=== PATIENT | female | born 1990 | race Caucasian/White ===

== ENCOUNTER → 2017-11-03 | Outpatient (CLI) | payer OTHER | END | disposition home or self-care (01) | LOC: C.PAPS 10:03 | PROVIDERS: ATTEND Physician Assistant | DX: Z01.411 Encounter for gynecological examination (general) (routine) with abnormal findings (principal); R87.619 Unspecified abnormal cytological findings in specimens from cervix uteri ==

== ENCOUNTER 2024-11-18 02:02 | Observation (INO) ==
--- NOTE | 2024-11-18 02:33 | Emergency Department Note ---
Impression & Plan Norovirus ED Provider Note CHIEF COMPLAINT: Vomiting, diarrhea, abdominal pain HISTORY OF PRESENTING ILLNESS: Patient is a 34-year-old female presents the emergency department today for evaluation of vomiting, diarrhea, abdominal pain. She reports going to dinner around 7:30 PM last evening and eating very hot spicy wings. On her way home she developed abdominal pain with vomiting and by the time she got home she was having watery and bloody stools. She does report a history of ulcers that she does not take any medications for. She does not report any recent travel, she does not smoke, she drinks social alcohol, and denies drug use. Her last menstrual cycle ended 1 week ago and she states that there is no chance of . She denies chest pain, sob, breathing difficulties, abdominal pain, headache, fevers/chills, blood in stool or urine, any recent illness, or any recent travel. REVIEW OF SYSTEMS: See HPI for pertinent positives and pertinent negatives. ALLERGIES: Penicillin MEDICATIONS: control PAST MEDICAL HISTORY: Stomach ulcers PHYSICAL EXAM: VITAL SIGNS - Vital signs and nursing notes were reviewed. GENERAL -34-year-old well appearing, stated age who is in no acute distress. Communicates well with provider and answers questions appropriately. HEAD - NC/AT. EYES - PERRL with EOMI bilaterally. Sclera anicteric. Palpebral conjunctiva pink and moist with no injection noted. MOUTH/OROPHARYNX - Without perioral cyanosis. Buccal mucosa pink and dry and without leukoplakia. Tongue midline with equal elevation of palate bilaterally. LUNGS - Chest wall symmetric without accessory muscle use, intercostals retractions, or central cyanosis. Normal vesicular breath sounds CTA B/L. No wheezes, rales, or rhonchi appreciated. CARDIAC - RRR with S1/S2. No murmur, rubs, or gallops appreciated. ABDOMEN - Abdominal contour is without pulsations or visible masses. BS hyperactive all four quadrants. Increase tenderness to palpation appreciated left lower quadrant. No guarding. No rebound Tenderness. No palpable masses, hepatosplenomegaly, or ascites noted. EXTREMITIES - No clubbing or peripheral cyanosis. No pretibial edema present. NEUROLOGIC - Cranial nerves II through XII grossly intact. Sensory intact to light touch throughout. PSYCH - A&Ox3 and cooperates fully with examiner. Pt is very pleasant and interacts well with examiner. DIFFERENTIAL DIAGNOSIS: Differential diagnosis includes appendicitis, diverticulitis, bowel obstruction, inflammatory bowel disease, renal colic, PUD, biliary pathology, pancreatitis, mesenteric ischemia, aortic pathology, infection, genitourinary, UTI, perforated viscus, among others. ED COURSE AND MEDICAL DECISION MAKING: HISTORY FROM INDEPENDENT HISTORIAN: Patient and her significant other who is at bedside MEDICATIONS GIVEN: 1 L normal saline, 4 mg Zofran IV, 40 mg Protonix IV MONITOR: Continuous diagnostic cardiac sonographer: Order was placed for continuous diagnostic cardiac sonographer. Patient was placed on the diagnostic cardiac sonographer and continuous pulse ox. Patient was noted to be in normal sinus rhythm at an initial rate of 72 bpm per my interpretation. INTERPRETATION OF LABS: I interpreted the labs with full lab results as below in the lab section of this note. Laboratory results pertinent to the emergent complaint are discussed in the MDM section below. The patient was advised to follow up with their PCP and/or specialist(s) for further outpatient monitoring and management of any abnormal results. There was no anemia, thrombocytopenia. WBCs 11.78. Stool culture was positive for Norovirus. Type and screen was completed, patient is O positive with negative antibody screen. INTERPRETATION OF IMAGING: Imaging studies were interpreted by myself and read by radiology as per the imaging section of this note. The patient was advised to follow up with their PCP and/or specialist(s) for further outpatient management of any non-emergent abnormal findings. The CT scan of the abdomen and pelvis was negative for acute findings. Patient will be admitted for further evaluation. EXTERNAL RECORDS REVIEWED: I reviewed the patient's primary care visits and past urology visit. CONSULTATIONS: I had a meaningful discussion about this patient with Dr. Ohara who agrees with my assessment and the treatment plan. I also spoke with Dr. Castellanos for admission to the medical floor. She has accepted the patient for admission. MDM SUMMARY: I examined the patient for complaints of vomiting, abdominal pain, diarrhea. While being evaluated, the patient made numerous trips to the bathroom for loose stools. She was able to provide a stool sample of bright red water stool. There was a gross amount of blood present. An IV lock was placed and labs were drawn. There was no anemia, thrombocytopenia. WBCs 11.78. Stool culture was positive for Norovirus. Type and screen was completed, patient is O positive with negative antibody screen. Patient was unable to provide a urine sample prior to admission. She knows one will still be needed when she is able to go. The CT scan of the abdomen and pelvis was negative for acute findings. The patient was given Zofran 4 mg IV, normal saline 1 L, Protonix 40 mg IV and had improvement with nausea and vomiting. The patient was able to rest quietly in bed. I spoke with Dr. Castellanos who will admit the patient. The patient will be admitted to medical floor under the care of Dr. Castellanos for norovirus with hematochezia. DIAGNOSIS: Norovirus with hematochezia TREATMENT PLAN/DISCHARGE INSTRUCTIONS: Admit to medical floor Past Med/Surg History Problem List (Updated 11/18/24 @ 05:41 by Ifrah Jack PA-C) Nausea and vomiting Dehydration Bloody diarrhea Norovirus (Acute) Femoroacetabular impingement of left hip Chronic left hip pain Interstitial cystitis Urinary symptom or sign Pelvic floor dysfunction Hip weakness Patellofemoral syndrome Patellar maltracking Encounter for routine gynecological examination Depression with anxiety (Acute) Encounter for other contraceptive management (Acute) Surgical History H/O colposcopy with cervical biopsy (~2017) 2017, verna 1 H/O wisdom tooth extraction Family History Grandfather Diabetes Denies family history of Cervical cancer Ovarian cancer Breast cancer Colorectal cancer Uterine cancer Social History Smoking Status: Never smoker Do You Dip or Chew Tobacco: No; Hx Alcohol Use: Yes Alcohol Intake Frequency: 2-3 x/Week marital status: Single current occupational status: employed 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 Feels Safe at Home: Yes Dental Care, Regularly: Yes Seatbelt Use: always Sunscreen Use: Yes Allergies Allergies Allergy/AdvReac Type Severity Reaction Status Date / Time Penicillins Allergy Unknown Unknown Verified 11/18/24 02:37 Home Meds Home Medications Medication Instructions Recorded Confirmed norgestimate 0.25 mg-ethinyl 1 tab PO DAILY 11/18/24 11/18/24 estradiol 0.035 mg tablet (Aria) Results & Data (ED) Vital Signs Vital Signs - 24 hr 11/18/24 02:05 11/18/24 02:57 11/18/24 03:00 Temperature 36.4 C L Temperature Source Oral Pulse Rate 76 Pulse Rate [Finger] 88 Pulse Rhythm [Finger] Regular Pulse Strength [Finger] Normal Respiratory Rate 20 20 Respiratory Effort / Characteristics Non-Labored Spontaneous Respiratory Depth Normal Normal Respiratory Pattern Regular Blood Pressure 94/60 L Blood Pressure [Left Arm] 95/61 L Blood Pressure Mean 71 Blood Pressure Mean [Left Arm] 72 Blood Pressure Position [Left Arm] Lying Pulse Oximetry 98 99 Oxygen Delivery Method Room Air Room Air Room Air Sepsis Recent Fever Within 48 Hours No Sepsis New/Unexplained Change in Mental Status N/A Sepsis Action Taken by Nursing No Action Required 11/18/24 03:37 11/18/24 05:00 11/18/24 06:32 Temperature Temperature Source Pulse Rate 72 Pulse Rate [Finger] 64 67 Pulse Rhythm [Finger] Pulse Strength [Finger] Respiratory Rate 18 18 Respiratory Effort / Characteristics Respiratory Depth Respiratory Pattern Blood Pressure Blood Pressure [Left Arm] 98/68 L 93/56 L Blood Pressure Mean Blood Pressure Mean [Left Arm] 78 68 Blood Pressure Position [Left Arm] Pulse Oximetry 96 96 Oxygen Delivery Method Room Air Sepsis Recent Fever Within 48 Hours Sepsis New/Unexplained Change in Mental Status Sepsis Action Taken by Nursing Laboratory Data 11/18/24 02:52 11/18/24 02:52 Lab Results 11/18/24 11/18/24 11/18/24 Range/Units 02:52 02:58 03:15 WBC 11.78 H (4.8-10.8) K/ul RBC 4.76 (4.20-5.40) M/uL Hgb 14.6 (12.0-16.0) g/dl Hct 42.4 (37.0-47.0) % MCV 89.1 (80.0-100.0) fL MCH 30.7 (25.0-34.0) pg MCHC 34.4 (32.0-36.0) g/dL RDW Std Deviation 38.6 (36.4-46.3) fL RDW Coeff of [place] 11.9 (11.5-14.5) % Plt Count 172 (130-400) K/uL MPV 12.0 (9.4-12.4) fL Immature Gran % (Auto) 0.3 % Neut % (Auto) 88.4 % Lymph % (Auto) 7.3 % [place] % (Auto) 3.4 % Eos % (Auto) 0.4 % Baso % (Auto) 0.2 % Neut # (Auto) 10.42 H (1.40-6.50) K/uL Lymph # (Auto) 0.86 L (1.20-3.40) K/uL [place] # (Auto) 0.40 (0.11-0.59) K/uL Eos # (Auto) 0.05 (0.00-0.50) K/uL Baso # (Auto) 0.02 (0.00-0.20) K/uL Immature Gran # (Auto) 0.03 (0.01-0.20) K/uL ESR 4 (0-20) mm/hr Sodium 137 (136-145) mmol/L Potassium 4.2 (3.5-5.1) mmol/L Chloride 104 (98-107) mmol/L Carbon Dioxide 27 (21-32) mmol/L Anion Gap 6 (3-11) BUN 17 (6-23) mg/dl Creatinine 0.91 (0.6-1.2) mg/dl Est Cr Clr Drug Dosing 82.3 ml/min eGFR 85.43 BUN/Creatinine Ratio 18.7 (10-20) Glucose 159 H (70-99(Fasting)) mg/dl Calcium 9.3 (8.6-10.3) mg/dl Magnesium 1.4 L (1.7-2.4) mg/dl Total Bilirubin 0.9 (0.2-1.0) mg/dl AST 22 (13-39) U/L ALT 15 (7-52) U/L Alkaline Phosphatase 43 (34-104) U/L C-Reactive Protein < 0.50 (0-0.5) mg/dl Total Protein 7.6 (6.0-8.3) gm/dl Albumin 4.1 (3.4-5.0) gm/dl Globulin 3.5 (2.5-4.0) gm/dl Albumin/Globulin Ratio 1.2 (0.9-2) Lipase 27 (11-82) U/L Stl C. cayetanensis PCR Not Detected (NotDetected) Stool Rotavirus A PCR Not Detected (NotDetected) Stl Adenov F 40/41 PCR Not Detected (NotDetected) Stool Astrovirus (PCR) Not Detected (NotDetected) Stool Campylobacter PCR Not Detected (NotDetected) Stl C. diff Tox B Gene Negative Cdiff Gene (Neg) Stool Cryptosporidium PCR Not Detected (NotDetected) Stl E.coli Shiga Tox PCR Not Detected (NotDetected) Stl Enterotoxigenic E PCR Not Detected (NotDetected) Stool EPEC (PCR) Not Detected (NotDetected) Stool EAEC (PCR) Not Detected (NotDetected) Stl E. histolytica PCR Not Detected (NotDetected) Stool Giardia Lamblia PCR Not Detected (NotDetected) Stool Salmonella PCR Not Detected (NotDetected) Stool Sapovirus (PCR) Not Detected (NotDetected) Stl P. shigelloides PCR Not Detected (NotDetected) Stl Shigella/EIEC PCR Not Detected (NotDetected) St Y.enterocolitica PCR Not Detected (NotDetected) Stool Vibrio (PCR) Not Detected (NotDetected) Stl Vibrio cholerae PCR Not Detected (NotDetected) Stl Norovirus GI/GII PCR DETECTED A* (NotDetected) SARS-CoV-2 (PCR) NEGATIVE (Negative) Influenza Type A (PCR) Negative (Neg) Influenza Type B (PCR) Negative (Neg) RSV (RT-PCR) Negative (Neg) Blood Type O Positive Antibody Screen NEGATIVE Administered Medications Lactated Ringer's (Lr) 1,000 mls @ 125 mls/hr IV .Q8H SLAVA Stop: 11/18/24 13:14 Last Admin: 11/18/24 05:31 Dose: 125 mls/hr Documented By: FREDERIC Magnesium Sulfate/Dextrose (Magnesium Sulfate / D5w) 1 gm in 100 mls @ 50 mls/hr IV Q2H SLAVA Stop: 11/18/24 09:59 Last Admin: 11/18/24 06:14 Dose: 50 mls/hr Documented By: FREDERIC Discontinued Medications Sodium Chloride (Nss) 1,000 mls @ 999 mls/hr IV .Q1H1M STA Stop: 11/18/24 03:16 Last Infusion: 11/18/24 04:36 Dose: Infused Documented By: Admin: 11/18/24 03:10 Dose: 999 mls/hr Documented By: ANDREW Pantoprazole Sodium (Protonix) 40 mg in 10 mls @ 5 mls/min IV ONCE ONE Stop: 11/18/24 03:08 Last Admin: 11/18/24 03:10 Dose: 5 mls/min Documented By: ANDREW Ondansetron HCl (Ondansetron Inj 2 Mg/Ml 2 Ml Vial) 4 mg IV NOW STA Stop: 11/18/24 02:17 Last Admin: 11/18/24 03:02 Dose: 4 mg Documented By: ANDREW Imaging Data Radiologist's Impression: Abdomen/Pelvis CT 11/18/24 02:33 EXAM: CT abd pelvis wo con CLINICAL HISTORY: abd pain, in mid and into left side. TECHNIQUE: Contiguous axial images were obtained from the level of the diaphragm to the pubic symphysis without intravenous or oral contrast. Coronal and sagittal reconstructions were likewise performed and indicated to increase the sensitivity for detecting clinically relevant pathology. CT scan was performed according to ALARA (as low as reasonable achievable). COMPARISON: 11/07/2023 FINDINGS: The visualized lung bases shows a subsegmental atelectasis band in basal segments of left lower lobe - likely post inflammatory changes. Evaluation of the abdominal and pelvic visceral organs is limited without intravenous contrast. The unenhanced liver, spleen, pancreas, and adrenal glands are grossly unremarkable. The gallbladder is present. The kidneys are normal in size and attenuation without obvious calcification. There is no hydronephrosis or perinephric stranding. The ureters are normal in caliber. No adenopathy or fluid collections are seen. No evidence of focal or diffuse bowel wall thickening or evidence of bowel obstruction is seen. The appendix is not separately visualized in the right lower quadrant, however no significant inflammatory changes are seen in surrounding fat planes. The aorta is normal in caliber. The urinary bladder is undistended. Pelvic viscera are grossly unremarkable. No aggressive appearing osseous lesions are identified. Mild free fluid in [place] IMPRESSION: within the limitations of a non contrast study, 1. Mild free fluid in cul [place] sac 2. No significant acute intra abdominal abnormality detected. No new findings. Electronically signed by Luciano Pang 11-18-2024 04:27 AM Discharge Plan Visit Data Chief Complaint: Vomiting Stated Complaint: VOMITING, BLOODY STOOL ED Provider: Vale Ohara ED Midlevel Provider: Radha Villegas Discharge Problem: Norovirus Patient Disposition: Admitted As Inpatient Condition: Fair Forms Stand Alone Forms: My [facility] Prescriptions Prescriptions: No Action norgestimate-ethinyl estradiol [Aria] 0.25-0.035 mg tablet 1 tab PO DAILY Referrals Referrals: Jduith Kennedy CRNP [Primary Care Provider] -
[2024-11-18] MEDS: ONDANSETRON INJ 2 MG/ML 2 ML VIAL IV STA (03:02)
[2024-11-18] MEDS: PANTOprazole 40 MG/10 ML SYR IV ONE (03:10)
[2024-11-18] MEDS: SODIUM CHLORIDE 0.9% 1,000 ML IV STA (03:10)
[2024-11-18 03:11] LABS: Basophils # (auto) 0.02 K/uL (0.00-0.20); Basophils % (auto) 0.2 %; Eosinophils # (auto) 0.05 K/uL (0.00-0.50); Eosinophils % (auto) 0.4 %; Hematocrit (blood only) 42.4 % (37.0-47.0); Hemoglobin 14.6 g/dl (12.0-16.0); Immature Granulocytes # (auto) 0.03 K/uL (0.01-0.20); Immature Granulocytes % (auto) 0.3 %; Lymphocytes # (auto) 0.86 K/uL (1.20-3.40); Lymphocytes % (auto) 7.3 %; Mean Corpuscular Hemoglobin 30.7 pg (25.0-34.0); Mean Corpuscular Hgb Conc 34.4 g/dL (32.0-36.0); Mean Corpuscular Volume 89.1 fL (80.0-100.0); Monocytes % (auto) 3.4 %; Neutrophils # (auto) 10.42 K/uL (1.40-6.50); Neutrophils % (auto) 88.4 %; Platelet Count 172 K/uL (130-400); RDW Coefficient of Variation 11.9 % (11.5-14.5); RDW Standard Deviation 38.6 fL (36.4-46.3); Red Blood Count 4.76 M/uL (4.20-5.40); White Blood Count 11.78 K/ul (4.8-10.8)
[2024-11-18 03:30] LABS: Alanine Aminotransferase 15 U/L (7-52); Albumin Globulin Ratio 1.2 (0.9-2); Albumin Level 4.1 gm/dl (3.4-5.0); Alkaline Phosphatase 43 U/L (34-104); Anion Gap 6 (3-11); Aspartate Aminotransferase 22 U/L (13-39); BUN Creatinine Ratio 18.7 (10-20); Bilirubin,Total 0.9 mg/dl (0.2-1.0); Blood Urea Nitrogen 17 mg/dl (6-23); Calcium 9.3 mg/dl (8.6-10.3); Carbon Dioxide 27 mmol/L (21-32); Chloride 104 mmol/L (98-107); Creatinine Clr Calc Pharmacy 82.3 ml/min; Globulin 3.5 gm/dl (2.5-4.0); Glucose 159 mg/dl (70-99(Fasting)); Lipase 27 U/L (11-82); Potassium 4.2 mmol/L (3.5-5.1); Sodium 137 mmol/L (136-145); Total Protein 7.6 gm/dl (6.0-8.3)
[2024-11-18 04:07] LABS: Influenza A virus by PCR Negative (Neg); Influenza B virus by PCR Negative (Neg); RSV by PCR Negative (Neg); SARS CoV2 RNA(COVID-19) Ceph NEGATIVE (Negative)
--- NOTE | 2024-11-18 04:27 | CT Scan Report ---
EXAM: CT abd pelvis wo con CLINICAL HISTORY: abd pain, in mid and into left side. TECHNIQUE: Contiguous axial images were obtained from the level of the diaphragm to the pubic symphysis without intravenous or oral contrast. Coronal and sagittal reconstructions were likewise performed and indicated to increase the sensitivity for detecting clinically relevant pathology. CT scan was performed according to ALARA (as low as reasonable achievable). COMPARISON: 11/07/2023 FINDINGS: The visualized lung bases shows a subsegmental atelectasis band in basal segments of left lower lobe - likely post inflammatory changes. Evaluation of the abdominal and pelvic visceral organs is limited without intravenous contrast. The unenhanced liver, spleen, pancreas, and adrenal glands are grossly unremarkable. The gallbladder is present. The kidneys are normal in size and attenuation without obvious calcification. There is no hydronephrosis or perinephric stranding. The ureters are normal in caliber. No adenopathy or fluid collections are seen. No evidence of focal or diffuse bowel wall thickening or evidence of bowel obstruction is seen. The appendix is not separately visualized in the right lower quadrant, however no significant inflammatory changes are seen in surrounding fat planes. The aorta is normal in caliber. The urinary bladder is undistended. Pelvic viscera are grossly unremarkable. No aggressive appearing osseous lesions are identified. Mild free fluid in [place] IMPRESSION: within the limitations of a non contrast study, 1. Mild free fluid in cul [place] sac 2. No significant acute intra abdominal abnormality detected. No new findings. Electronically signed by Luciano Pang 11-18-2024 04:27 AM
[2024-11-18 04:41] LABS: Adenovirus F 40/41 PCR Not Detected (NotDetected); Astrovirus PCR Not Detected (NotDetected); Campylobacter PCR Not Detected (NotDetected); Cryptosporidium PCR Not Detected (NotDetected); Cyclospora cayetanensis PCR Not Detected (NotDetected); Entamoeba histolytica PCR Not Detected (NotDetected); Enteroaggregative E.coli(EAEC) Not Detected (NotDetected); Enteropathogenic E.coli (EPEC) Not Detected (NotDetected); Enterotoxigenic E.coli (ETEC) Not Detected (NotDetected); Giardia lamblia PCR Not Detected (NotDetected); Norovirus GI/GII PCR DETECTED (NotDetected); Plesiomonas shigelloides PCR Not Detected (NotDetected); Rotavirus A PCR Not Detected (NotDetected); Salmonella PCR Not Detected (NotDetected); Sapovirus PCR Not Detected (NotDetected); Shiga-like Toxin E.coli (STEC) Not Detected (NotDetected); Shigella/Enteroinvasive E.coli Not Detected (NotDetected); Vibrio cholerae PCR Not Detected (NotDetected); Vibrio species PCR Not Detected (NotDetected); Yersinia enterocolitica PCR Not Detected (NotDetected)
--- NOTE | 2024-11-18 05:09 | History & Physical Report ---
Date of Service November 18, 2024 Assessment & Plan (1) Norovirus: (2) Bloody diarrhea: (3) Nausea and vomiting: (4) Dehydration: Plan Patient is a 34-year-old female with insignificant past medical history. Patient presented due to sudden onset vomiting and bloody diarrhea that began this evening. She tested positive for norovirus. APCT negative for acute changes. she is being admitted for mild dehydration and intractable vomiting. #Intractable vomiting/bloody diarrhea/norovirus/dehydration - Positive for norovirus on [employer]. Elevated WBC 11.7; otherwise laboratories essentially unremarkable, Hgb 14.6, electrolytes stable, renal function stable. AP CT negative for any acute changes. Mild hypotension 95/61 at time of admission 2/2 volume depletion. - 1L NSS bolus in ED; continue fluid resuscitation with LR at 125 mL/hr x 1L - Protonix IV twice daily - Zofran as needed for nausea - Isolation precautions - Clear liquid diet, advance as tolerated - magnesium 1.4 - 2 G IV mag ordered - trend CBC, BMP, mag - differential does include inflammatory bowel dz as patient had similar episode in July - ESR and CRP ordered VTE ppx: SCDs, low risk and defer chemical PPx with hematochezia Dispo: MedSurg Admission and Anticipated Discharge Date Admission Date: 11/18/24 History of Present Illness Chief Complaint: Vomiting Primary Care Provider: MICHAEL Ndiaye Patient is a 34-year-old female with insignificant past medical history. Patient presented due to sudden onset vomiting and bloody diarrhea that began this evening. She tested positive for norovirus. APCT negative for acute changes. Patient seen at bedside with her boyfriend present. She stated that they went out to dinner this evening and had hot wings, on the ride home she developed bloating and abdominal pain thinking that she ate too much. She tried to lay down for about 1 hour with achy abdominal pain and then woke up with vomiting and diarrhea at the same time. Patient stated stools were originally dark but transition to have bright red blood in them. Last episode approximately 3 AM. Abdominal pain and nausea improved at time of admission. Patient stated she had a similar episode in July however she had no blood present and pain was not as intense. Patient also endorses lightheadedness/dizziness with vomiting episodes. ROS otherwise negative, denies fever, chills, chest pain, shortness of breath. Patient denies nicotine or alcohol use. Patient's only home medication is control. She wishes to be full code. Allergies Allergy/AdvReac Type Severity Reaction Status Date / Time Penicillins Allergy Unknown Unknown Verified 11/18/24 02:37 Home Medications Medication Instructions Recorded Confirmed Type norgestimate 0.25 mg-ethinyl 1 tab PO DAILY 11/18/24 11/18/24 History estradiol 0.035 mg tablet (Aria) Past Med/Surg History Problem List (Updated 11/18/24 @ 05:41 by Ifrah Jack PA-C) Nausea and vomiting Dehydration Bloody diarrhea Norovirus (Acute) Femoroacetabular impingement of left hip Chronic left hip pain Interstitial cystitis Urinary symptom or sign Pelvic floor dysfunction Hip weakness Patellofemoral syndrome Patellar maltracking Encounter for routine gynecological examination Depression with anxiety (Acute) Encounter for other contraceptive management (Acute) Surgical History H/O colposcopy with cervical biopsy (~2017) 2017, verna 1 H/O wisdom tooth extraction Family History Grandfather Diabetes Denies family history of Cervical cancer Ovarian cancer Breast cancer Colorectal cancer Uterine cancer Social History Smoking Status: Never smoker Do You Dip or Chew Tobacco: No; Hx Alcohol Use: Yes Alcohol Intake Frequency: 2-3 x/Week marital status: Single current occupational status: employed 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 Non-toxic appearing. HEENT- EOMI, mucous membranes dry. Hearing grossly intact. Heart-normal S1 and S2. No murmurs, rubs or gallops. Lungs-clear bilaterally, no respiratory distress, no accessory muscle use. Abdomen-normal bowel sounds and soft. No ascites noted. Non-tender. Extremities- no clubbing, cyanosis, or edema. Rheumatologic-normal range of motion. Psychiatric-normal affect. Results & Data Results & Data Vital Signs (Past 12 Hours) Vital Signs Temp Pulse Pulse Resp BP BP Pulse Ox 11/18/24 03:37 72 11/18/24 03:00 88 20 95/61 L 99 11/18/24 02:57 11/18/24 02:05 36.4 C L 76 20 94/60 L 98 O2 Del Method 11/18/24 03:37 11/18/24 03:00 Room Air 11/18/24 02:57 Room Air 11/18/24 02:05 Room Air Laboratory Results reviewed CBC, CMP, stool [employer] Diagnostic Findings reviewed AP CT Medications Administered ED1L NSS bolus, Protonix 40 Mg IV, Zofran 4 Mg IV ECG Additional Comments: Ordered Code Status & VTE Plan Code Status full VTE Prophylaxis Plan VTE Prophylaxis will be ordered: Yes Supervising Physician Co-Signing Physician Notes patient seen examined, chart reviewed, case discussed with ZAHIDA Jack and I agree with the assessment and plan as document above. In brief, patient is a 34-year-old female presenting with bloody diarrhea. Found to have norovirus infection. Of note, patient with similar symptoms albeit milder than today, in July which lasted 1 to 2 days On exam patient is resting comfortably, no acute distress Abdomen is soft, mildly tender diffusely without rebound/guarding/peritonitis + S1, S2 Lungs CTA anteriorly Labs and images reviewed Assessment/plan Symptomatic careIV fluids, Protonix, Zofran, clear dietadvance as tolerated Consider inflammatory bowel disease as differential. CT scan does not support this. Will send off ESR and CRP, consider additional workup outpatient if warranted Remainder as above PG Care Time/CCT Total # of Minutes Spent Total Time Spent with Patient: Total time spent is greater than 50% in coordination of care (as documented) at patient's floor/unit and/or counseling patient: Coding Level of Care Code 12663 INT INP/OBS CARE 3/75MIN Diagnoses Norovirus A08.11 Bloody diarrhea R19.7 Nausea and vomiting R11.2 Dehydration E86.0
[2024-11-18] MEDS: LACTATED RINGER'S 1,000 ML IV SCH (05:31)
[2024-11-18 05:47] LABS: Magnesium 1.4 mg/dl (1.7-2.4)
[2024-11-18] MEDS: MAGNESIUM SULFATE / D5W 1 GM/100 ML BAG IV SCH (06:14)
[2024-11-18 06:49] LABS: C Reactive Protein < 0.50 mg/dl (0-0.5)
[2024-11-18] MEDS ORDERED: PANTOprazole 40 MG/10 ML SYR IV SCH (09:00)
[2024-11-18] MEDS ORDERED: ONDANSETRON INJ 2 MG/ML 2 ML VIAL IV PRN (10:13)
[2024-11-18] MEDS ORDERED: MELATONIN 3 MG TAB PO PRN (10:13)
[2024-11-18] MEDS: PANTOprazole 40 MG/10 ML SYR IV SCH (10:47)
[2024-11-18] MEDS: ACETAMINOPHEN 325 MG TAB PO PRN (15:34)
--- NOTE | 2024-11-18 15:42 | Hospitalist Progress Note ---
Date of Service November 18, 2024 Assessment & Plan (1) Norovirus: (2) Bloody diarrhea: (3) Nausea and vomiting: (4) Dehydration: Plan Patient is a 34-year-old female with insignificant past medical history. Patient presented due to sudden onset vomiting and bloody diarrhea that began evening of 11/17. On admission she tested positive for Norovirus on [employer]. CT A/P negative for acute changes. She was admitted for dehydration and symptom control. Mild leukocytosis but otherwise labs unremarkable with Hgb 14.6, electrolytes stable, renal function stable. There was concern for inflammatory bowel disease as the patient had a similar episode in July 2024, however ESR and CRP were normal, so IBD less likely. Mild hypotension 90s/50s, asymptomatic, likely due to volume depletion. #Norovirus / Dehydration Received 2 L NSS Continue Protonix IV twice daily, Zofran as needed for nausea Advanced to full liquid diet for dinner. If well-tolerated, can advance to low fiber diet for breakfast 11/19 Repleted hypomagnesemia with 2 g IV mag - repeat mag, CBC, BMP in AM VTE ppx: SCDs, low risk and defer chemical PPx with hematochezia Dispo: Anticipate discharge home 11/19 Admission and Anticipated Discharge Date Admission Date: November 18, 2024 Subjective Patient seen and evaluated at bedside with her boyfriend present. She reports having a headache at this time and requests Tylenol. She ate some crackers earlier and had some mild nausea after that resolved on its own. She had a bowel movement which she described as loose but not quite liquid like yesterday, and states it had some streaks of bright red blood. We discussed the results of her lab work and imaging. Will advance to full liquid diet for dinner and if well-tolerated, low fiber diet for breakfast. She denies lightheadedness, dizziness, abdominal pain, nausea at this time. No additional complaints or concerns at this time. Physical Exam Physical Exam: General: No acute distress, nondiaphoretic, well-developed, well-nourished. Cardiac: Regular rate and rhythm without murmurs gallops or rubs. Pulm: Clear to auscultation bilaterally without wheezes, rales or rhonchi. Normal respiratory effort. 99% on room air. Abdominal: Soft, nontender, nondistended. Bowel sounds present. No guarding or rebound tenderness. No masses or organomegaly. Neuro: A&O x3. No focal neurological deficits. Results & Data Results & Data Vital Signs (Past 12 Hours) Vital Signs Pulse Pulse Resp BP BP Pulse Ox O2 Del Method 11/18/24 12:00 89/53 L 11/18/24 12:00 99 Room Air 11/18/24 11:39 100 Room Air 11/18/24 11:06 80 98 Room Air 11/18/24 10:33 98 Room Air 11/18/24 10:00 98 Room Air 11/18/24 10:00 93/66 L 11/18/24 09:30 97 Room Air 11/18/24 09:00 97 Room Air 11/18/24 08:42 98 Room Air 11/18/24 08:30 62 14 97 Room Air 11/18/24 08:00 61 14 97 Room Air 11/18/24 07:55 96/56 L 11/18/24 07:55 96/56 L 11/18/24 07:54 61 15 97 Room Air 11/18/24 07:54 75 11/18/24 07:51 75 23 98 Room Air 11/18/24 07:09 79 17 97 Room Air 11/18/24 07:00 92/55 L 11/18/24 06:32 67 18 93/56 L 96 11/18/24 05:00 64 18 98/68 L 96 Room Air Laboratory Results Reviewed CBC with differential Reviewed CMP, chemistries Reviewed stool [employer] Diagnostic Findings Reviewed CT A/P PG Care Time/CCT Total # of Minutes Spent Total Time Spent with Patient: Total time spent is greater than 50% in coordination of care (as documented) at patient's floor/unit and/or counseling patient: Coding Level of Care Code None Diagnoses Norovirus A08.11 Bloody diarrhea R19.7 Nausea and vomiting R11.2 Dehydration E86.0
[2024-11-19 06:59] LABS: Basophils # (auto) 0.01 K/uL (0.00-0.20); Basophils % (auto) 0.3 %; Eosinophils # (auto) 0.02 K/uL (0.00-0.50); Eosinophils % (auto) 0.5 %; Hematocrit (blood only) 37.3 % (37.0-47.0); Hemoglobin 12.6 g/dl (12.0-16.0); Immature Granulocytes # (auto) 0.01 K/uL (0.01-0.20); Immature Granulocytes % (auto) 0.3 %; Lymphocytes # (auto) 0.84 K/uL (1.20-3.40); Lymphocytes % (auto) 22.5 %; Mean Corpuscular Hemoglobin 30.9 pg (25.0-34.0); Mean Corpuscular Hgb Conc 33.8 g/dL (32.0-36.0); Mean Corpuscular Volume 91.4 fL (80.0-100.0); Mean Platelet Volume 12.5 fL (9.4-12.4); Monocytes # (auto) 0.25 K/uL (0.11-0.59); Monocytes % (auto) 6.7 %; Neutrophils % (auto) 69.7 %; Platelet Count 140 K/uL (130-400); RDW Coefficient of Variation 11.9 % (11.5-14.5); Red Blood Count 4.08 M/uL (4.20-5.40); White Blood Count 3.73 K/ul (4.8-10.8)
[2024-11-19 07:20] LABS: BUN Creatinine Ratio 8.7 (10-20); Calcium 7.7 mg/dl (8.6-10.3); Creatinine Clr Calc Pharmacy 108.6 ml/min; Magnesium 1.8 mg/dl (1.7-2.4); Potassium 3.7 mmol/L (3.5-5.1)
[2024-11-19 08:41] VITALS: BP 96/60; PULSE 74; RESP 16; TEMP 98.2; O2SAT 98
[2024-11-19 08:48] LABS: Appearance Urine Clear (Clear); Bilirubin Urine Negative (Negative); Blood Urine Negative (Negative); Color Urine Yellow; Glucose Urine UA Negative (Negative); Ketones Urine Trace (Negative); Leukocyte Esterase Urine Negative (Negative); Nitrite Urine Negative (Negative); Protein Urine Negative (Negative); Specific Gravity Urine 1.019 (1.000-1.030); Urobilinogen Urine Negative (Negative)
--- NOTE | 2024-11-19 10:36 | Discharge Summary ---
Discharge Summary Date of Service November 19, 2024 Principal Dx & Hospital Course #1 = Principal Diagnosis (1) Norovirus: (2) Bloody diarrhea: (3) Nausea and vomiting: (4) Dehydration: Plan Patient is a 34-year-old female with insignificant past medical history. Patient presented due to sudden onset vomiting and bloody diarrhea that began evening of 11/17. On admission she tested positive for Norovirus on [employer]. CT A/P negative for acute changes. She was admitted for dehydration and symptom control. Mild leukocytosis but otherwise labs unremarkable with Hgb 14.6, electrolytes stable, renal function stable. There was concern for inflammatory bowel disease as the patient had a similar episode in July 2024, however ESR and CRP were normal, so IBD less likely. UA negative. Mild hypotension 90s/50s, asymptomatic, likely due to volume depletion. #Norovirus / Dehydration Received 2 L NSS, Protonix IV twice daily, Zofran as needed for nausea while admitted Mild hypomagnesemia of 1.4, repleted with 2 g IV mag, augmented appropriately to 1.8 Nausea/vomiting resolved. Hematochezia resolved, but non-bloody loose stools continue Well-tolerated diet advancement Discharged with Zofran 4 mg p.o. q6h prn nausea/vomiting VTE ppx: SCDs, low risk and defer chemical PPx with hematochezia Dispo: Discharged home 11/19 Notes For Next Care Provider Consider outpatient colonoscopy given hematochezia Medication Changes From Visit Zofran 4 mg q6h prn N/V Admission HPI Per Admitting Provider Patient is a 34-year-old female with insignificant past medical history. Patient presented due to sudden onset vomiting and bloody diarrhea that began this evening. She tested positive for norovirus. APCT negative for acute changes. Patient seen at bedside with her boyfriend present. She stated that they went out to dinner this evening and had hot wings, on the ride home she developed bloating and abdominal pain thinking that she ate too much. She tried to lay down for about 1 hour with achy abdominal pain and then woke up with vomiting and diarrhea at the same time. Patient stated stools were originally dark but transition to have bright red blood in them. Last episode approximately 3 AM. Abdominal pain and nausea improved at time of admission. Patient stated she had a similar episode in July however she had no blood present and pain was not as intense. Patient also endorses lightheadedness/dizziness with vomiting episodes. ROS otherwise negative, denies fever, chills, chest pain, shortness of breath. Patient denies nicotine or alcohol use. Patient's only home medication is control. She wishes to be full code. Discharge Exam General: No acute distress, nondiaphoretic, well-developed, well-nourished. Cardiac: Regular rate and rhythm without murmurs gallops or rubs. Pulm: Clear to auscultation bilaterally without wheezes, rales or rhonchi. Normal respiratory effort. 98% on room air. Abdominal: Soft, nontender, nondistended. Bowel sounds present. No guarding or rebound tenderness. No masses or organomegaly. Neuro: A&O x3. No focal neurological deficits. Discharge Plan Discharge Items Patient Disposition: Home - Self-Care Reason For Visit: NOROVIRUS, DEHYDRATION Discharge Diagnosis: Norovirus Condition on Discharge: Fair Activity: Resume your previous activity Non-emergency contact: Primary Care Provider Call non-emergency contact if: you have any medication questions and your symptoms worsen Follow-up/Referrals: Judith Kennedy CRNP [Primary Care Provider] - (Follow-up in 1-2 weeks) Diet: Regular Addtl Attending Provider Instructions: Abraham Winter were admitted to the hospital due to intractable vomiting and diarrhea and dehydration. You were found to have Norovirus, which is a very contagious GI virus. This virus spreads easily through contaminated foods and surfaces. You were treated in the hospital with supportive measures and have improved. Upon discharge from the hospital: * Drink plenty of fluids to prevent dehydration. * Take Zofran (anti-nausea medicine) 4 mg every 6 hours as needed for nausea/vomiting. * Advance back to your regular diet as tolerated. * Take Tylenol or ibuprofen as needed for headaches / body aches. * Follow-up with your PCP in 1-2 weeks. Please return to the hospital if you experience any of the following: Fever of 100.5 F or higher, severe abdominal pain, persistent vomiting/diarrhea, passing out, confusion, chest pain, shortness of breath, or any other symptoms concerning for you. It was a pleasure taking care of you while you were in the hospital! Pending Studies at Discharge: No Stand-Alone Forms: My [facility], Work/School Release, Smoking Cessation Medications and DC Order Prescriptions: New ondansetron HCl 4 mg tablet 4 mg PO Q6H PRN (Reason: nausea and vomiting) Qty: 20 0RF Continued norgestimate-ethinyl estradiol [Aria] 0.25-0.035 mg tablet 1 tab PO DAILY Discharge Orders: Discharge Order (Routine); Ordered 11/19/24 Ordered By: Selma Veliz/Other Patient Handouts: Understanding Norovirus Admission Data Admit Date/Time: 11/18/24 05:37 Attending Provider: Sandeep Connolly Admit Provider: Judith Castellanos Primary Care Provider: Judith Kennedy Other Providers: Judith Castellanos Hospital Stay Data Consultations 11/18/24 04:58 ED Decision to Admit Stat Diagnostic Imagining Performed Abdomen/Pelvis CT 11/18/24 02:33 EXAM: CT abd pelvis wo con CLINICAL HISTORY: abd pain, in mid and into left side. TECHNIQUE: Contiguous axial images were obtained from the level of the diaphragm to the pubic symphysis without intravenous or oral contrast. Coronal and sagittal reconstructions were likewise performed and indicated to increase the sensitivity for detecting clinically relevant pathology. CT scan was performed according to ALARA (as low as reasonable achievable). COMPARISON: 11/07/2023 FINDINGS: The visualized lung bases shows a subsegmental atelectasis band in basal segments of left lower lobe - likely post inflammatory changes. Evaluation of the abdominal and pelvic visceral organs is limited without intravenous contrast. The unenhanced liver, spleen, pancreas, and adrenal glands are grossly unremarkable. The gallbladder is present. The kidneys are normal in size and attenuation without obvious calcification. There is no hydronephrosis or perinephric stranding. The ureters are normal in caliber. No adenopathy or fluid collections are seen. No evidence of focal or diffuse bowel wall thickening or evidence of bowel obstruction is seen. The appendix is not separately visualized in the right lower quadrant, however no significant inflammatory changes are seen in surrounding fat planes. The aorta is normal in caliber. The urinary bladder is undistended. Pelvic viscera are grossly unremarkable. No aggressive appearing osseous lesions are identified. Mild free fluid in [place] IMPRESSION: within the limitations of a non contrast study, 1. Mild free fluid in cul [place] sac 2. No significant acute intra abdominal abnormality detected. No new findings. Electronically signed by Luciano Pang 11-18-2024 04:27 AM Pending Results Patient Have Any Pending Studies at Discharge: No Discharge Instructions Given to Patient (Per Discharging Provider) Abraham Winter were admitted to the hospital due to intractable vomiting and diarrhea and dehydration. You were found to have Norovirus, which is a very contagious GI virus. This virus spreads easily through contaminated foods and surfaces. You were treated in the hospital with supportive measures and have improved. Upon discharge from the hospital: * Drink plenty of fluids to prevent dehydration. * Take Zofran (anti-nausea medicine) 4 mg every 6 hours as needed for nausea/vomiting. * Advance back to your regular diet as tolerated. * Take Tylenol or ibuprofen as needed for headaches / body aches. * Follow-up with your PCP in 1-2 weeks. Please return to the hospital if you experience any of the following: Fever of 100.5 F or higher, severe abdominal pain, persistent vomiting/diarrhea, passing out, confusion, chest pain, shortness of breath, or any other symptoms concerning for you. It was a pleasure taking care of you while you were in the hospital! Total Time Total Time Spent Total Time Spent (In Minutes): Greater than 30 minutes spent completing this discharge process including direct patient care, medication reconciliation, documentation, review of labs and images, and coordination of care. Coding Level of Care Code 84039 INP/OBS DISCH >30 MIN Diagnoses Norovirus A08.11 Bloody diarrhea R19.7 Nausea and vomiting R11.2 Dehydration E86.0
== END 2024-11-19 11:24 | disposition home or self-care (01) ==
LOC: SUATTDRO → EDINP 02:02 → ED 02:02 → SUATTDRO 05:37 → 3E 10:13